=== PATIENT | male | born 1970 | race Caucasian/White ===

== ENCOUNTER 2022-07-14 00:51 | Emergency (ER) | payer OTHER ==
[~2022-07-14] VITALS: Ht 175.3 cm; Wt 110.0 kg
[~2022-07-14 00:51] MED LIST: AMOXICILLIN500 MG PO; ASPIRIN81 MG PO; GLIPIZIDE ER5 MG PO; LANCETS 30G30 G SC; LISINOPRIL10 MG PO; LISINOPRIL5 MG OR; LISINOPRIL5 MG PO; METFORMIN1000 MG PO; METFORMIN500 MG PO; MONITOR SC; OMEPRAZOLE40 MG PO; PRAVASTATIN20 MG OR; PRAVASTATIN20 MG PO; PRILOSEC40 MG PO; ZOFRAN ODT8 MG OR; [UNRECOGNIZED DRUG - SUPPLY] SC
[2022-07-14 01:10] VITALS: BP 160/75
[2022-07-14 01:16] VITALS: BP 153/76
[2022-07-14] MEDS ORDERED: TRAMADOL HCL50 MG PO (01:16)
[2022-07-14 01:23] VITALS: BP 153/76
== END 2022-07-14 01:31 | disposition home or self-care (01) | DRG 603 ==
LOC: ED 00:51
DX: L03.011 Cellulitis of right finger (principal)

== ENCOUNTER 2024-02-08 00:59 | Inpatient (IN) | payer OTHER ==
[2024-02-08] VITALS (36 sets, daily range): BP systolic 111–165; BP diastolic 64–116
[~2024-02-08] VITALS: Ht 175.3 cm; Wt 97.7 kg
[~2024-02-08 00:59] MED LIST changes: +TRAMADOL HCL50 MG PO
[2024-02-08] MEDS ORDERED: TENECTEPLASE 50 MG/KIT IV ONE (01:30)
[2024-02-08 01:32] LABS: BASO% 0.3 % (0-3); EOS% 1.9 % (0-8); IMMATURE GRANULOCYTES 0.6 % (0.0-5.0); LYMPH% 34.7 % (15-41); MEAN CELL VOLUME 84.9 fL CALC (80.0-100.0); MEAN CORPUSCULAR HGB 27.8 pG CALC (26.0-32.0); MEAN CORPUSCULAR HGB CONC 32.7 g/dL CAL (32.0-36.0); MONO% 6.8 % (2-13); NEUT# 8.86 thou/uL (1.82-7.42); NEUT% 55.7 % (42-76); RED BLOOD COUNT 4.5 mill/uL (4.70-6.10); RED CELL DISTRI WIDTH 13.1 % (11.5-15.5)
[2024-02-08 01:37] LABS: ALBUMIN 4.1 g/dL (3.2-5.0); BUN 26 mg/dL (9-20); BUN/CREATININE RATIO 25 (12-20 (CALC)); CALCULATED LDLCHOLESTEROL 56 mg/dL (62-129 (CALC)); CHLORIDE 106 mmol/l (95-108); CHOLESTEROL HDL RATIO 4.2 (<4.4 (CALC)); CREATININE 1.1 mg/dL (0.7-1.3); ESTIMATED GFR 80 ML/MIN (>=90 (CALC)); HDL CHOLESTEROL 29 mg/dL (39.0-59.0); SGOT/AST 32 u/l (17-59); SODIUM 139 mmol/l (137-146); TOTAL CHOLESTEROL 123 mg/dl (0-199); TOTAL PROTEIN 7.3 g/dL (6.3-8.2); TOTAL TRIGLYCERIDES 188 mg/dl (0-149); VLDL CHOLESTROL 38 mg/dl (8-62 (CALC))
[2024-02-08 01:42] LABS: HEMATOCRIT 38.2 % (39.0-50.0); HEMOGLOBIN 12.5 g/dl (14.0-18.0)
[2024-02-08 01:48] LABS: INTERNATIONAL NORMALIZED RATIO 1.2 RATIO (0.7-1.3)
[2024-02-08 01:58] LABS: ALKALINE PHOSPHATASE 43 u/l (38-126); ANION GAP 11 (6-22 (CALC)); BILIRUBIN, TOTAL 0.5 mg/dL (0.2-1.3); CARBON DIOXIDE 24 mmol/l (22-30); POTASSIUM 2.4 mmol/l (3.5-5.1)
[2024-02-08 02:02] LABS: PROTHROMBIN TIME 11.6 SECONDS (9.0-12.5)
[2024-02-08] MEDS ORDERED: DiphenhydrAMINE HCL 50 MG/ML SDV IV ONE (02:10)
[2024-02-08] MEDS ORDERED: POTASSIUM CHLORIDE 10MEQ 50 ML IV ONE (02:10)
[2024-02-08] MEDS ORDERED: SODIUM CHLORIDE 0.9% 1,000 ML IV ONE (02:10)
[2024-02-08] MEDS ORDERED: methylPREDNISolone SODIUM SUCC 125 MG/2 ML SDV IV ONE (02:15)
[2024-02-08] MEDS ORDERED: POTASSIUM CHLORIDE 20MEQ 100 ML IV ONE (02:30)
[2024-02-08] MEDS ORDERED: ONDANSETRON HCl 4 MG/2 ML SDV IV ONE (02:40)
[2024-02-08] MEDS ORDERED: JANUVIA25 MG PO (02:44)
[2024-02-08] MEDS ORDERED: VICTOZA18 MG/3 ML SC (02:52)
[2024-02-08] MEDS ORDERED: PRAVASTATIN SOD20 MG PO (02:52)
[2024-02-08] MEDS ORDERED: METOCLOPRAMIDE HCL 10 MG/2 ML SDV IV ONE (03:15)
[2024-02-08] MEDS ORDERED: ACETAMINOPHEN 325 MG/TAB PO PRN (05:50)
[2024-02-08] MEDS ORDERED: DEXTROSE 250 ML IV PRN ×5 (05:50→23:00)
[2024-02-08] MEDS ORDERED: MAGNESIUM HYDROXIDE 30 ML UDC PO PRN (05:50)
[2024-02-08] MEDS ORDERED: LABETALOL HCL 20 MG/ 4 ML CARTRG IV PRN ×2 (05:50)
[2024-02-08] MEDS ORDERED: SODIUM CHLORIDE 0.9% 1,000 ML IV PRN (05:50)
[2024-02-08] MEDS ORDERED: CLARIFY DOSE PO PRN (06:00)
[2024-02-08] MEDS ORDERED: INSULIN LISPRO 100 UNITS/ML ML SC SCH (07:30)
[2024-02-08 07:38] LABS: MAGNESIUM < 0.2 mg/dL (1.6-2.3)
[2024-02-08] MEDS ORDERED: POTASSIUM CHLORIDE 20MEQ 100 ML IV SCH (08:00)
[2024-02-08] MEDS ORDERED: MAGNESIUM SULFATE HEPTAHYDRATE 100 ML IV SCH (08:30)
[2024-02-08 09:21] LABS: BASO% 0.2 % (0-3); EOS% 0.1 % (0-8); HEMATOCRIT 39.7 % (39.0-50.0); HEMOGLOBIN 13.5 g/dl (14.0-18.0); IMMATURE GRANULOCYTES 0.7 % (0.0-5.0); LYMPH% 5.1 % (15-41); MEAN CELL VOLUME 82.2 fL CALC (80.0-100.0); MONO% 1.7 % (2-13); NEUT# 17.48 thou/uL (1.82-7.42); NEUT% 92.2 % (42-76); RED BLOOD COUNT 4.83 mill/uL (4.70-6.10); RED CELL DISTRI WIDTH 13.1 % (11.5-15.5)
[2024-02-08 09:22] LABS: ALBUMIN 4.1 g/dL (3.2-5.0); ALKALINE PHOSPHATASE 44 u/l (38-126); BILIRUBIN, TOTAL 0.4 mg/dL (0.2-1.3); BUN 29 mg/dL (9-20); BUN/CREATININE RATIO 28 (12-20 (CALC)); CARBON DIOXIDE 24 mmol/l (22-30); CHLORIDE 101 mmol/l (95-108); ESTIMATED GFR 89 ML/MIN (>=90 (CALC)); SGOT/AST 36 u/l (17-59); SODIUM 136 mmol/l (137-146); TOTAL PROTEIN 7.1 g/dL (6.3-8.2)
[2024-02-08 09:35] LABS: ANION GAP 14 (6-22 (CALC)); MAGNESIUM < 0.2 mg/dL (1.6-2.3); POTASSIUM 2.9 mmol/l (3.5-5.1)
[2024-02-08] MEDS ORDERED: ONDANSETRON HCl 4 MG/2 ML SDV IV PRN (10:20)
[2024-02-08] MEDS ORDERED: INSULIN REGULAR (HUMAN) 100 UNIT/ML INJ IV SCH (10:30)
[2024-02-08] MEDS ORDERED: MECLIZINE HCL 25 MG/TAB PO SCH (11:00)
[2024-02-08] MEDS ORDERED: INSULIN REGULAR (HUMAN) 100 UNIT/ML INJ IV ONE (16:55)
[2024-02-08 23:00] LABS: URINE BILIRUBIN - DIPSTICK Negative (NEGATIVE); URINE BLOOD DIPSTICK Negative (NEGATIVE); URINE GLUCOSE - DIPSTICK 100 mg/dL (NEGATIVE); URINE KETONE 40 mg/dL (NEGATIVE); URINE LEUK ESTERASE Negative (NEGATIVE); URINE NITRITE - DIPSTICK Negative (Negative); URINE PROTEIN - DIPSTICK 30 mg/dL (NEG-TRACE); URINE UROBILINOGEN - DIPSTICK 0.2 E.U./dL (0.2)
[2024-02-08 23:01] LABS: URINE COLOR Yellow
[2024-02-08 23:09] LABS: URINE RBC 0-2 RBC/hpf (0-5)
[2024-02-08 23:10] LABS: URINE HYALINE CAST RARE lpf (NONE-RARE); URINE MUCUS FEW hpf (NONE-FEW)
[2024-02-09] VITALS (13 sets, daily range): BP systolic 108–154; BP diastolic 64–93
[2024-02-09 05:36] LABS: BASO% 0.2 % (0-3); EOS% 0.6 % (0-8); IMMATURE GRANULOCYTES 0.3 % (0.0-5.0); MEAN CELL VOLUME 82.1 fL CALC (80.0-100.0); MEAN CORPUSCULAR HGB 28.5 pG CALC (26.0-32.0); MEAN CORPUSCULAR HGB CONC 34.7 g/dL CAL (32.0-36.0); MONO% 8.2 % (2-13); NEUT# 10.07 thou/uL (1.82-7.42); NEUT% 68.7 % (42-76); RED BLOOD COUNT 3.86 mill/uL (4.70-6.10); RED CELL DISTRI WIDTH 13.3 % (11.5-15.5)
[2024-02-09 05:45] LABS: HEMATOCRIT 31.7 % (39.0-50.0)
[2024-02-09 05:56] LABS: ALBUMIN 3.8 g/dL (3.2-5.0); BILIRUBIN, TOTAL 0.4 mg/dL (0.2-1.3); CREATININE 0.8 mg/dL (0.7-1.3); POTASSIUM 2.9 mmol/l (3.5-5.1); TOTAL PROTEIN 6.4 g/dL (6.3-8.2)
[2024-02-09] MEDS ORDERED: POTASSIUM CHLORIDE 20 MEQ/TAB PO SCH (06:45)
[2024-02-09] MEDS ORDERED: INSULIN LISPRO 100 UNITS/ML ML SC SCH (07:00)
[2024-02-09] MEDS ORDERED: MAGNESIUM SULFATE HEPTAHYDRATE 100 ML IV SCH (07:30)
[2024-02-09] MEDS ORDERED: POTASSIUM CHLORIDE 20MEQ 100 ML IV SCH (12:00)
[2024-02-09] MEDS ORDERED: ASPIRIN 81 LOW81 MG PO (14:33)
[2024-02-10] MEDS ORDERED: LISINOPRIL 20 MG/TAB PO SCH (09:00)
[2024-02-10] MEDS ORDERED: MECLIZINE25 M2 PO (09:29)
== END 2024-02-09 15:56 | disposition home or self-care (01) | DRG 63 ==
LOC: ED 00:59 → ED-I 01:54 → ED 01:54 → ED-I 02:20 → ICU 03:01 → ED 03:01 → ICU 02-09 15:56
PROVIDERS: Family Medicine; ADMIT Student in an Organized Health Care Education/Training Program; ATTEND Student in an Organized Health Care Education/Training Program
DX: G45.9 Transient cerebral ischemic attack, unspecified (principal); I10 Essential (primary) hypertension; R22.0 Localized swelling, mass and lump, head; T50.8X5A Adverse effect of diagnostic agents, initial encounter; E87.6 Hypokalemia; E83.42 Hypomagnesemia; E11.65 Type 2 diabetes mellitus with hyperglycemia; E78.5 Hyperlipidemia, unspecified; G93.89 Other specified disorders of brain; D72.825 Bandemia; T38.0X5A Adverse effect of glucocorticoids and synthetic analogues, initial encounter; R11.2 Nausea with vomiting, unspecified; Z79.84 Long term (current) use of oral hypoglycemic drugs
CPT/HCPCS: J3101; J3475; Q9967

== ENCOUNTER 2024-02-09 19:10 | Emergency (ER) | payer OTHER ==
[~2024-02-09] VITALS: Ht 175.3 cm; Wt 95.0 kg
[~2024-02-09 19:10] MED LIST changes: +ASPIRIN 81 LOW81 MG PO; +JANUVIA25 MG PO; +PRAVASTATIN SOD20 MG PO; +VICTOZA18 MG/3 ML SC
[2024-02-09 19:21] VITALS: BP 148/96
[2024-02-09] MEDS ORDERED: MECLIZINE HCL 25 MG/TAB PO ONE (19:30)
[2024-02-09] MEDS ORDERED: DiphenhydrAMINE HCL 50 MG/ML SDV IV ONE (19:30)
[2024-02-09] MEDS ORDERED: SODIUM CHLORIDE 0.9% 1,000 ML IV ONE (19:30)
[2024-02-09 19:31] VITALS: BP 125/80
[2024-02-09 19:48] LABS: BASO% 0.3 % (0-3); HEMATOCRIT 33.2 % (39.0-50.0); HEMOGLOBIN 11.1 g/dl (14.0-18.0); IMMATURE GRANULOCYTES 0.3 % (0.0-5.0); LYMPH% 21.9 % (15-41); MEAN CELL VOLUME 83.6 fL CALC (80.0-100.0); MEAN CORPUSCULAR HGB CONC 33.4 g/dL CAL (32.0-36.0); MONO% 8.6 % (2-13); NEUT# 9.88 thou/uL (1.82-7.42); NEUT% 67.9 % (42-76); RED BLOOD COUNT 3.97 mill/uL (4.70-6.10); RED CELL DISTRI WIDTH 13.6 % (11.5-15.5)
[2024-02-09 19:59] LABS: ALBUMIN 4.3 g/dL (3.2-5.0); BILIRUBIN, TOTAL 0.3 mg/dL (0.2-1.3); MAGNESIUM 1.5 mg/dL (1.6-2.3); POTASSIUM 3.6 mmol/l (3.5-5.1)
[2024-02-09 21:02] VITALS: BP 125/80
[2024-02-10] MEDS ORDERED: MECLIZINE25 M2 PO (09:29)
== END 2024-02-09 21:09 | disposition home or self-care (01) | DRG 149 ==
LOC: ED 19:10
PROVIDERS: Family Medicine
DX: R42 Dizziness and giddiness (principal); I10 Essential (primary) hypertension; E11.9 Type 2 diabetes mellitus without complications; Z79.84 Long term (current) use of oral hypoglycemic drugs